=== PATIENT | male | born 1965 | race Caucasian/White ===

== ENCOUNTER → 2020-12-28 | Day surgery (SDC) | payer BC ==
[~2020-12-28] MED LIST: ASPIRIN81 MG PO; FENTANYL CITRATE/PF 100MCG/2 ML INJ ONE; METOPROLOL SUCC50 MG PO; MIDAZOLAM HCL 2 MG/2 ML VIAL ONE; MOXIFLOXACIN HCL(OPTH) 3 ML BTL ONE; OR PHACO EYE KIT ONE; OR PHACO EYE KIT OP ONE; PREOP PHACO EYE KIT ONE; PREOP PHACO EYE KIT OP ONE; TRINTELLIX10 MG PO
[2020-12-28 16:55] VITALS: BP 154/99
== END | disposition home or self-care (01) ==
LOC: OR 12:07
PROVIDERS: ATTEND Ophthalmology
DX: H25.11 Age-related nuclear cataract, right eye (principal); G47.33 Obstructive sleep apnea (adult) (pediatric); I10 Essential (primary) hypertension; E78.2 Mixed hyperlipidemia; E66.01 Morbid (severe) obesity due to excess calories; F41.9 Anxiety disorder, unspecified; Z79.82 Long term (current) use of aspirin; Z68.32 Body mass index [BMI] 32.0-32.9, adult
CPT/HCPCS: 66984; J2250; J3010; V2632

== ENCOUNTER → 2021-01-18 | Day surgery (SDC) | payer BC ==
[~2021-01-18] MED LIST changes: -FENTANYL CITRATE/PF 100MCG/2 ML INJ ONE; -MIDAZOLAM HCL 2 MG/2 ML VIAL ONE; -MOXIFLOXACIN HCL(OPTH) 3 ML BTL ONE; -OR PHACO EYE KIT OP ONE; -PREOP PHACO EYE KIT OP ONE
[2021-01-18 13:40] VITALS: BP 112/71
== END | disposition home or self-care (01) ==
LOC: OR 10:01
PROVIDERS: ATTEND Ophthalmology
DX: H25.12 Age-related nuclear cataract, left eye (principal); G47.33 Obstructive sleep apnea (adult) (pediatric); R00.2 Palpitations; F41.9 Anxiety disorder, unspecified; Z79.82 Long term (current) use of aspirin